=== PATIENT | male | born 1970 | race Caucasian/White ===

== ENCOUNTER → 2018-06-26 11:03 | Outpatient (CLI) | payer MEDICAID, SELFPAY ==
--- NOTE | 2018-06-26 13:17 | STRESSREP ---
Stress Test Report Treadmill EKG report: Resting EKG: Sinus bradycardia, normal axis, normal intervals, no evidence of previous myocardial infarction. Treadmill EKG: Patient exercise according to [facility] protocol for 7 minutes and 0 seconds achieving a maximum workload of 8.50 METS. Resting heart rate was initially 58 bpm and loc to maximum 139 bpm which represents 81% of the maximal age-predicted heart rate. Resting blood pressure is 118/74 and loc to maximum 190/70. Test was terminated due to dyspnea. During exercise the patient's heart rate increased as expected. Patient had no dynamic EKG changes to suggest ischemia. No arrhythmias noted. Conclusions normal adequate treadmill EKG. Negative for ischemia by EKG criteria. No anginal symptoms noted. No arrhythmias noted. Hypertensive blood pressure response to exercise. Below average exercise capacity for age. Despite not reaching target heart rate the patient's rate pressure product was adequate to indicate a good test. Test terminated due to dyspnea. No complications.
== END ==
PROVIDERS: Family Provider Student in an Organized Health Care Education/Training Program; PCP Student in an Organized Health Care Education/Training Program; Visit Provider Student in an Organized Health Care Education/Training Program
DX: R00.2 Palpitations (principal); R07.9 Chest pain, unspecified
CPT/HCPCS: 93017